=== PATIENT | female | born 1930 | race Caucasian/White ===

== ENCOUNTER 2016-12-03 15:15 | Inpatient (IN) | payer OTHER, MEDICARE ==
[~2016-12-03] VITALS: Ht 154.9 cm; Wt 69.9 kg
--- NOTE | 2016-12-03 15:15 | NUR ---
Patient was BIBA at this time.
[2016-12-03 15:24] VITALS: BP 162/94
[2016-12-03] MEDS ORDERED: ALBUTEROL 0.083% 2.5 MG/3 ML NEBU INH ONE (15:25)
[2016-12-03] MEDS ORDERED: IPRATROPIUM 0.02% 0.5 MG/2.5 ML NEBU INH ONE (15:25)
[2016-12-03] MEDS ORDERED: methylPREDNISolone SS 125 MG/2 ML VIAL IVP ONE (15:25)
[2016-12-03] MEDS ORDERED: MAG SULF 2000 MG/WATER PREMIX 50 ML IV ONE (15:25)
--- NOTE | 2016-12-03 15:42 | NUR ---
RT at [facility] to perform ABG.
[2016-12-03 15:49] LABS: HEMATOCRIT 44.3 % (36-48); HEMOGLOBIN 14.4 g/dL (12.0-16.0); MEAN CORPUSCULAR HEMOGLOBIN 32 pg (27-31); MEAN CORPUSCULAR HGB CONC 32 g/dL (33-37); MEAN CORPUSCULAR VOLUME 98 fL (80-94); PLATELET COUNT (AUTO) 240 K/uL (140-450); RED BLOOD CELL COUNT(AUTO) 4.52 MIL/uL (4.20-5.40); RED CELL DISTRIBUTION WIDTH 13.4 % (11.6-13.7); WHITE BLOOD COUNT (AUTO) 19.9 K/uL (4.8-10.8)
--- NOTE | 2016-12-03 15:50 | NUR ---
PATIENT PRESENTS TO ED WITH C/O DYSPNEA X LAST NIGHT---TACHYPNEA, SHALLOW RESP, WHEEZING TO ALL LOBES NO PEDAL EDEMA NOTED HX--HTN, RX---PREDNISONE DENIES N/V/D; SKIN IS PINK/WARM/DRY; AAOX4 WITH EVEN AND STEADY GAIT; LUNGS EXP WHZ BL; HR EVEN AND REGULAR; PT DENIES ANY CP, OR COUGH AT THIS TIME; PATIENT STATES PAIN OF 0/10 AT THIS TIME; VSS; PATIENT POSITIONED FOR COMFORT; HOB ELEVATED; BEDRAILS UP X2; BED DOWN. ER MD MADE AWARE OF PT STATUS.
[2016-12-03 15:57] LABS: BLOOD GAS BASE EXCESS 2.8 mmol/L (-2.0-2.0); BLOOD GAS HCO3 26.7 mmol/L; BLOOD GAS O2 SAT% 78.8 % (92.0-98.5); BLOOD GAS PCO2 38.6 mmHg (20-50); BLOOD GAS PH 7.458 (7.35-7.45); BLOOD GAS PO2 42.1 mmHg
--- NOTE | 2016-12-03 15:57 | NUR ---
Patient being taken to bed 06 via gurney per EMS.
[2016-12-03 16:01] LABS: ANION GAP 15.1 (8-16); CALCIUM 8.8 mg/dL (8.5-10.1); CARBON DIOXIDE 27.4 mmol/L (21-32); CHLORIDE 102 mmol/L (98-107); GLUCOSE 112 mg/dL (74-106); POTASSIUM 3.5 mmol/L (3.5-5.1); SODIUM SERUM 141 mmol/L (136-145); UREA NITROGEN, BLOOD 15 mg/dL (7-18)
[2016-12-03 16:06] LABS: BAND % (MANUAL) 3 % (0-8); LYMPHOCYTES % (MANUAL) 14 % (20-46); MONOCYTES % (MANUAL) 7 % (5-12); NEUTROPHILS % (MANUAL) 76 (43-65); PLATELET ESTIMATE ADEQUATE
[2016-12-03 16:07] LABS: ALANINE AMINOTRANSFERASE 16 U/L (12-78); ALBUMIN 3.1 g/dL (3.4-5.0); ALKALINE PHOSPHATASE 54 U/L (46-116); AMYLASE 25 U/L (25-115); ASPARTATE AMINOTRANSFERASE 30 U/L (15-37); LIPASE 44 U/L (73-393); TOTAL BILIRUBIN 2.3 mg/dL (0.0-1.0); TOTAL PROTEIN, SERUM 7.5 g/dL (6.4-8.2)
[2016-12-03 16:18] LABS: INR 1.1 (0.8-1.2); PARTIAL THROMBOPLASTIN TIME 26.6 secs (22-35.6); PROTHROMBIN TIME 11.5 secs (10.8-13.4)
[2016-12-03] MEDS ORDERED: ONDANSETRON 4 MG/2 ML VIAL IVP PRN (17:05)
[2016-12-03] MEDS ORDERED: ACETAMINOPHEN 325 MG TAB PO PRN (17:05)
[2016-12-03] MEDS ORDERED: NACL 0.9% 1,000 ML IV SCH (17:05)
[2016-12-03] MEDS ORDERED: MORPHINE SULFATE 2 MG/ML SYR IVP PRN (17:05)
[2016-12-03] MEDS ORDERED: HYDROcodone/APAP 5/325 MG 1 TAB TAB PO PRN (17:05)
--- NOTE | 2016-12-03 17:05 | NUR ---
RN UNAVAILABLE FOR REPORT AT THIS TIME
[2016-12-03] MEDS ORDERED: FUROSEMIDE 40 MG/4 ML VIAL IVP ONE (17:10)
[2016-12-03] MEDS ORDERED: LEVOFLOXACIN 500 MG/D5W PREMIX 100 ML IV ONE (17:30)
--- NOTE | 2016-12-03 17:30 | NUR ---
Patient will be admitted to care of DR NEFF. Admited to TELE. Will go to room 113. Belongings list completed. Report to AICHA HERNANDEZ.
[2016-12-03 17:44] LABS: APPEARANCE,URINE HAZY (CLEAR); BILIRUBIN,URINE 1+ (NEGATIVE); BLOOD, URINE 1+ (NEGATIVE); COLOR,URINE YELLOW (YELLOW); LEUKOCYTE ESTERASE ,URINE NEGATIVE (NEGATIVE); NITRITE, URINE NEGATIVE (NEGATIVE); PROTEIN,URINE 1+ (NEGATIVE); UGLUCOSE NEGATIVE (NEGATIVE)
[2016-12-03 17:52] LABS: BACTERIA,URINE 1-9 (FEW) /HPF (None Seen); ICTOTEST NEGATIVE (NEGATIVE); RBC,URINE 3-10 (FEW) /HPF (0-5); SQUAMOUS EPITHELIAL CELL,UR 0-3 (FEW) /LPF (0-3 (FEW)); WBC,URINE 0-5 (RARE) /HPF (0-5)
[2016-12-03 17:54] LABS: LACTIC ACID 1.3 mmol/L (0.4-2.0)
[2016-12-03 17:59] LABS: FREE T4 (FREE THYROXINE) 0.97 ng/dL (0.76-1.46); MAGNESIUM 1.8 mg/dL (1.8-2.4); PHOSPHORUS 3.3 mg/dL (2.5-4.9); THYROID STIMULATING HORMONE 0.58 uIU/mL (0.34-3.76)
[2016-12-03] MEDS ORDERED: LISI-424 PO (18:00)
[2016-12-03] MEDS ORDERED: GABA100C PO (18:00)
[2016-12-03] MEDS ORDERED: TRA200 PO (18:00)
[2016-12-03] MEDS ORDERED: OSC500 PO (18:00)
[2016-12-03] MEDS ORDERED: LISI5TAB18 PO (18:00)
[2016-12-03] MEDS ORDERED: THYR60TA7 PO (18:00)
[2016-12-03] MEDS ORDERED: FURO-570 PO (18:00)
[2016-12-03] MEDS ORDERED: [UNRECOGNIZED DRUG - CODE] PO (18:00)
[2016-12-03] MEDS ORDERED: RALO60TA PO (18:00)
[2016-12-03] MEDS ORDERED: AMLO5TAB PO (18:00)
[2016-12-03] MEDS ORDERED: PRED10TA5 PO (18:00)
[2016-12-03] MEDS ORDERED: VITA-204 PO (18:00)
--- NOTE | 2016-12-03 18:15 | NUR ---
PATIENT ARRIVED IN THE UNIT FROM ER. PATIENT AWAKE AND ALERT. PATIENT REPORTS OF SOB BUT DENIES PAIN. PATIENT ON VENTURI MASK 10L 50% FIO2. O2 SAT AT 89%. PATIENT ST ON THE MONITOR. SKIN IS INTACT. IV LINE ON THE LEFT HAND INTACT AND ASYMPTOMATIC. CALLAHAN CATHETER IN PLACE. PATIENT PLACED ON TELE MONITORING. BED LOWERED WITH CALL LIGHT WITHIN REACH. WILL CONTINUE TO MONITOR
[2016-12-03 18:20] VITALS: BP 148/78
--- NOTE | 2016-12-03 18:20 | NUR ---
PATIENT HAVING LABORED BREATHING. PATIENT ON VENTI MASK ON 10L O2 50% FIO2 O2 SAT AT 88%. DR IZAGUIRRE PRESENT IN THE ROOM. DR SHAW PUT ORDERS
[2016-12-03] MEDS ORDERED: LEVOFLOXACIN 500 MG/D5W PREMIX 100 ML IV SCH (19:15)
[2016-12-03] MEDS ORDERED: ALBUTEROL SULFATE/IPRATROPIU 3 ML SOL IH PRN (19:15)
--- NOTE | 2016-12-03 19:18 | NUR ---
PATIENT TRANSFERRED TO ICU BED 5
--- NOTE | 2016-12-03 19:20 | NUR ---
RECEIVED PATIENT FROM [facility] ROOM 113 WITH RINA HOLCOMB AND HEIDE RN AT BEDSIDE. PATIENT IS TRANSFERRED TO ICU BED 5 C/C OF DYSPNEA/RESPIRATORY DISTRESS AND DX OF NSTEMI. THERE IS A#20 IN THE LEFT HAND WITH PATIENT RECEIVING NORMAL SALINE 20 ML/HR. PATIENT IS RECEIVING OXYGEN THERAPY AT 10 LPM VIA VENTURI MASK AT 50%. THERE IS A CALLAHAN CATHETER IN PLACE DRAINING TO GRAVITY WITH MODERATE AMOUNT OF CLEAR YELLOW URINE NOTED. EXPLAINED PLAN OF CARE TONIGHT TO PATIENT TO INCLUDE MEDICATION ADMINISTRATION, VITALS, AND MONITORING. PATIENT VERBALIZED UNDERSTANDING. HOB AT 30 DEGREES WITH BED IN LOW POSITION. SAFETY PRECAUTIONS IN PLACE. WILL CONTINUE TO MONITOR PATIENT.
--- NOTE | 2016-12-03 19:39 | NUR ---
DR. DEL CID AT BEDSIDE TO SEE PATIENT. MD PROVIDED UPDATED PLAN OF CARE TO PATIENT AND PATIENT'S AT BEDSIDE. NO SIGNS OF DISTRESS NOTED. CONTINUE TO MONITOR PATIENT.
[2016-12-03 20:00] VITALS: BP 132/72
[2016-12-03] MEDS: SIMVASTATIN 10 MG TAB PO SCH (21:14)
[2016-12-03] MEDS: METOPROLOL 25 MG TAB PO SCH (21:15)
[2016-12-03] MEDS: GABAPENTIN 100 MG CAP PO SCH (21:15)
[2016-12-03] MEDS: methylPREDNISolone SS 125 MG/2 ML VIAL IVP SCH (21:20)
--- NOTE | 2016-12-03 21:28 | NUR ---
PATIENT TOLERATED DUE MEDICATIONS. NO SIGNS OF RESPIRATORY DISTRESS OR SOB NOTED. WILL CONTINUE TO MONITOR PATIENT.
--- NOTE | 2016-12-03 21:28 | NUR ---
MUSHTAQ RT AND AYLIN RT AT BEDSIDE FOR SCHEDULED EKG AND BREATHING TREATMENT.
[2016-12-03] MEDS: BUDESONIDE 0.5 MG/2 ML NEBU INH SCH (21:30)
[2016-12-03 22:00] VITALS: BP 124/69
--- NOTE | 2016-12-03 22:20 | NUR ---
RAD TECHNICIANS AT BEDSIDE TO TAKE PATIENT FOR SCHEDULED PROCEDURE.
--- NOTE | 2016-12-03 22:25 | NUR ---
PATIENT WHEELED OFF UNIT VIA GURNEY WITH CHARGE NURSE JAVIER HOLCOMB AND RADIOLOGY TECHNICIANS TO RADIOLOGY FOR CT CHEST WITHOUT CONTRAST PROCEDURE PER DR. DEL CID'S ORDERS. NO SIGNS OF DISTRESS NOTED.
--- NOTE | 2016-12-03 22:45 | NUR ---
PATIENT TRANSPORTED BACK ONTO UNIT FROM RADIOLOGY. NO SIGNS OF DISTRESS OR SOB NOTED. CONTINUE TO MONITOR.
--- NOTE | 2016-12-03 22:54 | NUR ---
REPOSITIONED PATIENT FOR COMFORT. NO S/S OF DISTRESS NOTED. HOB AT 30 DEGREES WITH BED IN LOW POSITION. CONTINUE TO MONITOR PATIENT.
--- NOTE | 2016-12-03 23:40 | NUR ---
PACKAGE CENTER SUPERVISOR AT BEDSIDE FOR SCHEDULED LAB DRAW.
[2016-12-04] VITALS (13 sets, daily range): BP systolic 113–149; BP diastolic 62–77
--- NOTE | 2016-12-04 00:15 | NUR ---
PATIENT RESTING COMFORTABLY IN BED. NO S/S OF RESPIRATORY DISTRESS OR SOB NOTED. HOB AT 30 DEGREES WITH BED IN LOW POSITION. WILL CONTINUE TO MONITOR PATIENT.
--- NOTE | 2016-12-04 02:00 | NUR ---
PATIENT IS RESTING COMFORTABLY IN BED. NO SIGNS OF SOB OR ACUTE RESPIRATORY DISTRESS NOTED. VITALS ARE WNL. WILL CONTINUE TO MONITOR.
--- NOTE | 2016-12-04 04:05 | NUR ---
PATIENT RESTING COMFORTABLY IN BED WITH NO SIGNS OF RESPIRATORY DISTRESS OR SHORTNESS OF BREATH NOTED. HOB AT 30 DEGREES WITH BED IN LOW POSITION. WILL CONTINUE TO MONITOR PATIENT.
--- NOTE | 2016-12-04 05:15 | NUR ---
COLLATING MACHINE OPERATOR AT BEDSIDE FOR SCHEDULED LAB DRAWS. NO SIGNS OF DISTRESS NOTED.
--- NOTE | 2016-12-04 05:20 | NUR ---
SCHEDULED 629 ARMOUR THYROID 60 MG PO IS NOT AVAILABLE IN ICU UNIT. NOTIFIED SHAWN BROWNE RN, WHO STATED HE WILL CHECK OTHER UNITS IF IT IS AVAILABLE. CHARGE NURSE JAVIER HOLCOMB MADE AWARE.
[2016-12-04] MEDS: methylPREDNISolone SS 125 MG/2 ML VIAL IVP SCH ×3 (05:22→21:11)
--- NOTE | 2016-12-04 05:25 | NUR ---
SHAWN BROWNE RN CALLED AND NOTIFIED CHARGE NURSE JAVIER THAT ARMOUR THYROID 60MG PO IS NOT AVAILABLE IN OTHER UNITS. UNABLE TO ADMINISTER SCHEDULED 0630 DOSAGE. WILL ENDORSE TO DAY SHIFT TO FOLLOW UP WITH PHARMACY.
[2016-12-04] MEDS: THYROID 60 MG TAB PO SCH (05:31)
[2016-12-04 05:49] LABS: HEMATOCRIT 44.1 % (36-48); HEMOGLOBIN 14.6 g/dL (12.0-16.0); MEAN CORPUSCULAR HEMOGLOBIN 33 pg (27-31); MEAN CORPUSCULAR HGB CONC 33 g/dL (33-37); MEAN CORPUSCULAR VOLUME 98 fL (80-94); PLATELET COUNT (AUTO) 231 K/uL (140-450); RED BLOOD CELL COUNT(AUTO) 4.48 MIL/uL (4.20-5.40); RED CELL DISTRIBUTION WIDTH 13.2 % (11.6-13.7); WHITE BLOOD COUNT (AUTO) 23.4 K/uL (4.8-10.8)
[2016-12-04 05:55] LABS: ANION GAP 13.1 (8-16); CALCIUM 8.5 mg/dL (8.5-10.1); CARBON DIOXIDE 30.5 mmol/L (21-32); CHLORIDE 102 mmol/L (98-107); CREATININE 1.2 mg/dL (0.6-1.3); GLUCOSE 147 mg/dL (74-106); POTASSIUM 3.6 mmol/L (3.5-5.1); SODIUM SERUM 142 mmol/L (136-145); UREA NITROGEN, BLOOD 25 mg/dL (7-18)
[2016-12-04 06:02] LABS: CHOL/HDL RATIO 2.3 (1-4.5); MAGNESIUM 2.7 mg/dL (1.8-2.4); PHOSPHORUS 4.8 mg/dL (2.5-4.9)
--- NOTE | 2016-12-04 06:10 | NUR ---
PATIENT RESTING COMFORTABLY IN BED. NO SIGNS OF SOB OR DISTRESS NOTED. CONTINUE TO MONITOR PATIENT.
[2016-12-04] MEDS: BUDESONIDE 0.5 MG/2 ML NEBU INH SCH ×2 (06:53→19:16)
[2016-12-04 06:56] LABS: BAND % (MANUAL) 2 % (0-8); LYMPHOCYTES % (MANUAL) 4 % (20-46); MONOCYTES % (MANUAL) 1 % (5-12); NEUTROPHILS % (MANUAL) 93 (43-65)
--- NOTE | 2016-12-04 07:33 | NUR ---
PATIENT RESTING IN BED WITH NO SIGNS OF RESPIRATORY DISTRESS NOTED. ALL NEEDS ATTENDED TO DURING SHIFT. ENDORSED CONTINUITY OF CARE TO JASON HOLCOMB.
--- NOTE | 2016-12-04 07:45 | NUR ---
RECEIVED PATIENT AWAKE,ALERT AND ORIENTED X 4. CALM AND COOPERATIVE. STATES THAT SHE FEELS LITTLE BETTER TODAY. REEL FED PRINTER SHOWS SINUS RHYTHM. NO ECTOPY. ON O2 VENTURI MASK 50% . O2 SAT 91%. MILD SOB AT REST WITH INCREASE SOB ON EXERTION. LUNG SOUNDS CRACKLES IN BASES. ABDOMEN IS SOFT,ROUND,HYPOACTIVE BOWEL TONE AND NONTENDER. PT DENIES NAUSEA. PT STATES THAT SHE DOES NOT FEEL HUNGRY AT ALL. PT IS NPO. CALLAHAN CATHETER IN PLACE,DRAINING WITH SMALL AMT OF CLEAR YELLOW URINE. PT MOVES ALL EXTREMITIES WITH SOME WEAKNESS. SKIN IS WARM,DRY AND INTACT. NO EDEMA. HAS SALINE LOCK FOR IV. PATIENT DENIES PAIN. REPOSITIONED PATIENT AND OFF LOAD PRESSURE AREA. CONTINUE TO OBSERVE PATIENT.
[2016-12-04] MEDS ORDERED: amLODIPine 5 MG TAB PO SCH (09:00)
[2016-12-04] MEDS: ECOTRIN 81 MG TABEC PO SCH (09:08)
[2016-12-04] MEDS: METOPROLOL 25 MG TAB PO SCH (09:09)
[2016-12-04] MEDS: LISINOPRIL 5 MG TAB PO SCH (09:10)
[2016-12-04] MEDS: RALOXIFENE 60 MG TAB PO SCH (09:15)
--- NOTE | 2016-12-04 10:00 | NUR ---
VISITED PATIENT,UPDATED IN PATIENT'S CONDITION. PATIENT DENIES PAIN. REPOSITIONED PATIENT,OFF LOAD PRESSURE AREA.
--- NOTE | 2016-12-04 12:15 | NUR ---
CARDIOLOGY SEEN THE PATIENT AND SPOKE TO PATIENT'S DAUGHTER AT BEDSIDE REGARDING PT'S CONDITION AND PLAN OF CARE. ORDER RECEIVED FOR CARDIAC DIET.
--- NOTE | 2016-12-04 13:00 | NUR ---
ON O2 VENTURI MASK 50%. O2 SAT 91%. LUNCH IS SERVED. PLACED PATIENT ON O2 NASAL CANNULA @ 5 L/MIN FOR PATIENT TO EAT HER LUNCH. DAUGHTER IS AT BEDSIDE.
[2016-12-04] MEDS ORDERED: FUROSEMIDE 40 MG/4 ML VIAL IVP SCH (13:14)
--- NOTE | 2016-12-04 13:17 | NUR ---
PATIENT IS STILL EATING. ON NASAL CANNULAR AT 5 L/MIN WHILE EATING. O2 SAT 88-89%. PATIENT STATES THAT SHE FEELS OKAY. CONTINUE TO MONITOR PATIENT.
--- NOTE | 2016-12-04 13:45 | NUR ---
PATIENT ATE LUNCH 25%. HAS A POOR APPETITE. CHANGED O2 NASAL CANNULA TO VENTURI MASK 50% BEFORE.
[2016-12-04] MEDS: ALBUTEROL SULFATE/IPRATROPIU 3 ML SOL IH SCH ×3 (14:52→23:01)
[2016-12-04 15:48] LABS: BLOOD GAS BASE EXCESS 4.7 mmol/L (-2.0-2.0); BLOOD GAS HCO3 30.5 mmol/L; BLOOD GAS O2 SAT% 91.3 % (92.0-98.5); BLOOD GAS PCO2 49.2 mmHg (20-50)
--- NOTE | 2016-12-04 15:56 | NUR ---
CONDITION IS STABLE. COMPLETE BATH GIVEN WITH CATHETER CARE DONE. REPOSITIONED AND OFF LOAD PRESSURE AREA.
[2016-12-04] MEDS ORDERED: LEVOFLOXACIN 750 MG/D5W PREMIX 150 ML IV SCH (16:00)
--- NOTE | 2016-12-04 17:15 | NUR ---
ON O2 NASAL CANNULA 5 L/MIN FOR EATING DINNER. O2 SAT 88%-89%,BUT PATIENT HAS NO SIGN OF RESPIRATORY DISTRESS. PATIENT ATE PUDDING AND APPLE SAUCE ONLY.
[2016-12-04] MEDS ORDERED: PIPER/TAZO 2.25GM/D5W PREMIX 50 ML IV SCH (18:00)
--- NOTE | 2016-12-04 19:00 | NUR ---
HAS NO SIGN OF RESP DISTRESS. CONT ON SAME O2 VENTURI MASK 50%. PULMONARY PRESENT AT BEDSIDE. REPORT GIVEN TO THERESA HOLCOMB FOR CONTINUITY OF CARE.
--- NOTE | 2016-12-04 19:05 | NUR ---
RECEIVED REPORT FROM JASON HOLCOMB. PATIENT IS ALERT, AWAKE, AND RESTING IN BED. DR. DEL CID AT BEDSIDE TO ASSESS PATIENT. NO SIGNS OF DISTRESS OR SOB NOTED. VITALS ARE STABLE. NO REPORTS OF PAIN OR DISCOMFORT AT THIS TIME. BREATH SOUNDS ARE DIMINISHED AND BOWEL SOUNDS ARE ACTIVE. THERE IS A #20 IN THE LEFT HAND SALINE LOCK. SITE IS DRY, INTACT, AND PATENT. THERE IS A CALLAHAN CATHETER IN PLACE DRAINING TO GRAVITY WITH MODERATE AMOUNT OF MODERATE AMOUNT OF CLEAR YELLOW URINE NOTED. EXPLAINED PLAN OF CARE TO INCLUDE VITAL SIGNS, MONITORING, AND SCHEDULED MEDICATION ADMINISTRATION. PATIENT VERBALIZED UNDERSTANDING. DR. DEL CID'S NEW ORDER IS TO TITRATE FIO2 DOWN FROM 50% TO MAINTAIN OXYGEN SATURATION AT 88% AND ABOVE. WILL FOLLOW UP WITH NEW ORDERS AND COORDINATE PLAN OF CARE WITH RESPIRATORY THERAPIST. HOB AT 30 DEGREES WITH BED IN LOW POSITION. CONTINUE TO MONITOR PATIENT.
--- NOTE | 2016-12-04 19:23 | NUR ---
YONNY RT AT BEDSIDE FOR SCHEDULED BREATHING TX. NOTIFIED YONNY RT OF DR. DEL CID'S ORDERS OF TITRATING DOWN FIO2 TO MAINTAIN OXYGEN SATURATION AT 88% AND ABOVE.
[2016-12-04] MEDS: CLINDAMYCIN 600 MG in DEXTROSE 5% 50 ML IV SCH (21:10)
[2016-12-04] MEDS: GABAPENTIN 100 MG CAP PO SCH (21:10)
[2016-12-04] MEDS: CARVEDILOL 3.125 MG TAB PO SCH (21:11)
[2016-12-04] MEDS: SIMVASTATIN 10 MG TAB PO SCH (21:11)
--- NOTE | 2016-12-04 21:25 | NUR ---
TOLERATED DUE MEDICATIONS. NO SIGNS OF SOB OR DISTRESS NOTED. PATIENT'S NEEDS MET AT THIS TIME. HOB AT 30 DEGREES WITH BED IN LOW POSITION. CONTINUE TO MONITOR PATIENT.
[2016-12-05] VITALS (7 sets, daily range): BP systolic 122–144; BP diastolic 58–76
--- NOTE | 2016-12-05 | NUR ---
PATIENT RESTING COMFORTABLY IN BED WITH NO SIGNS OF ACUTE DISTRESS OR SOB NOTED. PATIENT'S NEEDS MET AT THIS TIME. VITALS ARE STABLE. HOB AT 30 DEGREES WITH BED IN LOW POSITION. WILL CONTINUE TO MONITOR PATIENT.
--- NOTE | 2016-12-05 02:05 | NUR ---
ROUNDED ON PATIENT. PATIENT RESTING COMFORTABLY IN BED WITH NO SIGNS OF ACUTE RESPIRATORY DISTRESS NOTED. WILL CONTINUE TO MONITOR PATIENT.
[2016-12-05] MEDS: ALBUTEROL SULFATE/IPRATROPIU 3 ML SOL IH SCH ×6 (03:29→23:42)
--- NOTE | 2016-12-05 04:44 | NUR ---
REAMING PRESS OPERATOR AT BEDSIDE FOR SCHEDULED LAB DRAWS.
--- NOTE | 2016-12-05 04:48 | NUR ---
OFFERED MORNING CARE TO PATIENT AFTER LAB DRAWS. PATIENT STATED SHE WOULD RATHER SLEEP AND REFUSED MORNING CARE AT THIS TIME. WILL CONTINUE TO MONITOR PATIENT.
[2016-12-05] MEDS: CLINDAMYCIN 600 MG in DEXTROSE 5% 50 ML IV SCH (04:49)
[2016-12-05] MEDS: methylPREDNISolone SS 125 MG/2 ML VIAL IVP SCH (04:50)
[2016-12-05 04:59] LABS: HEMOGLOBIN 13.7 g/dL (12.0-16.0); MEAN CORPUSCULAR HEMOGLOBIN 32 pg (27-31); MEAN CORPUSCULAR HGB CONC 33 g/dL (33-37); MEAN CORPUSCULAR VOLUME 99 fL (80-94); PLATELET COUNT (AUTO) 252 K/uL (140-450); RED BLOOD CELL COUNT(AUTO) 4.27 MIL/uL (4.20-5.40); RED CELL DISTRIBUTION WIDTH 13.3 % (11.6-13.7)
[2016-12-05] MEDS: THYROID 60 MG TAB PO SCH (05:50)
--- NOTE | 2016-12-05 06:05 | NUR ---
PATIENT AWAKE AND RESTING IN BED. NO SIGNS OF RESPIRATORY DISTRESS NOTED. PATIENT'S NEEDS MET AT THIS TIME. CONTINUE TO MONITOR PATIENT.
[2016-12-05 06:20] LABS: ANION GAP 9.9 (8-16); CALCIUM 8.3 mg/dL (8.5-10.1); CARBON DIOXIDE 33.4 mmol/L (21-32); CHLORIDE 105 mmol/L (98-107); CREATININE 1.2 mg/dL (0.6-1.3); GLUCOSE 160 mg/dL (74-106); POTASSIUM 3.3 mmol/L (3.5-5.1); SODIUM SERUM 145 mmol/L (136-145); UREA NITROGEN, BLOOD 42 mg/dL (7-18)
[2016-12-05 06:25] LABS: ALBUMIN 2.6 g/dL (3.4-5.0); MAGNESIUM 2.5 mg/dL (1.8-2.4); PHOSPHORUS 4.4 mg/dL (2.5-4.9)
--- NOTE | 2016-12-05 06:50 | NUR ---
RESPIRATORY THERAPIST AT BEDSIDE ADMINISTERING SCHEDULED BREATHING TREATMENT. NO SIGNS OF SOB OR DISTRESS NOTED. CONTINUE TO MONITOR.
[2016-12-05] MEDS: BUDESONIDE 0.5 MG/2 ML NEBU INH SCH ×2 (06:52→20:09)
--- NOTE | 2016-12-05 07:15 | NUR ---
PATIENT IN STABLE CONDITION. ALL NEEDS ATTENDED TO DURING SHIFT. ENDORSED CONTINUITY OF CARE TO MERLY HOLCOMB AND PABLITO HOLCOMB.
--- NOTE | 2016-12-05 07:30 | NUR ---
RECEIVED REPORT FROM AICHA CARDENAS. PT IS ALERT AND ORIENTED X4. VERBALLY RESPONSIVE. NO C/O PAIN OR DISCOMFORT. BILATERAL PERRLA NOTED IN EYES. PT CHANGED TO NC AT 3 L FOR BREAKFAST. TOLERATED WELL. SATURATING BETWEEN 88%-91%. NOTIFY RT TO ASSESS IF ABLE TO STAY ON NC AFTER BREAKFAST. NOTIFIED. ST ON MONITOR. SKIN INTACT. LEFT HAND 20 GAUGE NOTED. INTACT AND PATENT. CALLAHAN CATHETER NOTED. DRAINING CLEAR YELLOW URINE. ABLE TO MOVE ALL EXTREMITIES. WEAKNESS NOTED. SAFETY PRECAUTION MAINTAINED. BED AT LOWEST SETTING. CALL LIGHT WITHIN REACH. WILL CONTINUE TO MONITOR.
[2016-12-05 08:03] LABS: WHITE BLOOD COUNT (AUTO) 30.6 K/uL (4.8-10.8)
[2016-12-05 08:04] LABS: BAND % (MANUAL) 2 % (0-8); LYMPHOCYTES % (MANUAL) 5 % (20-46); MONOCYTES % (MANUAL) 3 % (5-12); NEUTROPHILS % (MANUAL) 90 (43-65)
[2016-12-05 08:30] LABS: BLOOD GAS PCO2 48.9 mmHg (20-50); BLOOD GAS PH 7.378 (7.35-7.45)
[2016-12-05 08:31] LABS: BLOOD GAS BASE EXCESS 2.2 mmol/L (-2.0-2.0); BLOOD GAS HCO3 28.1 mmol/L; BLOOD GAS O2 SAT% 91.9 % (92.0-98.5)
--- NOTE | 2016-12-05 08:39 | NUR ---
DEANGELO REPORTED TO DR NEFF
--- NOTE | 2016-12-05 08:40 | NUR ---
DR. NEFF'S GROUP IN TO SEE PT. WILL FOLLOW UP ON ORDERS.
[2016-12-05] MEDS: FUROSEMIDE 40 MG/4 ML VIAL IVP SCH (09:22)
[2016-12-05] MEDS: ECOTRIN 81 MG TABEC PO SCH (09:22)
[2016-12-05] MEDS: LISINOPRIL 5 MG TAB PO SCH (09:23)
[2016-12-05] MEDS: MULTIVITAMIN/MINERALS 1 TAB PO SCH (09:23)
[2016-12-05] MEDS: CARVEDILOL 3.125 MG TAB PO SCH ×2 (09:23→21:04)
[2016-12-05] MEDS: CALCIUM CARB/VIT-D 500 MG/200 IU 1 TAB PO SCH (09:23)
[2016-12-05] MEDS: RALOXIFENE 60 MG TAB PO SCH (09:23)
--- NOTE | 2016-12-05 09:25 | NUR ---
MEDICATION GIVEN ORDERED. TOLERATED WELL. WILL CONTINUE TO MONITOR. BP 121/58, P 100.
--- NOTE | 2016-12-05 10:00 | NUR ---
DR. JEFFREY AT BEDSIDE TO SEE PT. WILL F/U WITH NEW ORDERS.
--- NOTE | 2016-12-05 10:14 | NUR ---
PATIENT HAS BEEN SCREENED AND CATEGORIZED HIGH NUTRITION RISK. PATIENT WILL BE SEEN WITHIN 1-2 DAYS OF ADMISSION. 12/04/16-12/05/[address]
[2016-12-05] MEDS ORDERED: POTASSIUM CHLORIDE 10 MEQ TABER PO SCH (10:30)
[2016-12-05] MEDS ORDERED: PROBIOTIC SCREEN 1 EA MISC MC PRN (10:55)
--- NOTE | 2016-12-05 11:27 | NUR ---
PT TOLERATED MEDS WELL
--- NOTE | 2016-12-05 12:05 | NUR ---
PT'S ADOPTED DAUGHTER, GARRY, PRESENT AT BEDSIDE.
--- NOTE | 2016-12-05 13:07 | NUR ---
DR. DEL CID IN TO SEE PT. WILL FOLLOW UP ON ORDERS.
--- NOTE | 2016-12-05 13:30 | NUR ---
PER PT, PT NOTED PAIN UPON FLUSHING OF LEFT HAND IV. ASSESSMENT SHOWS IV IS STILL PATENT AND INTACT. NEW IV STARTED PER PT'S REQUEST. STARTED GAUGE 20 ON RIGHT FOREARM. TOLERATED WELL. BLOOD RETURN NOTED. IV IS INTACT AND PATENT. WILL CONTINUE TO MONITOR.
--- NOTE | 2016-12-05 13:55 | NUR ---
PT'S HAIR SHAMPOOED AND COMBED FOR COMFORT. PT'S DAUGHTER PRESENT AT BEDSIDE.
--- NOTE | 2016-12-05 14:06 | NUR ---
12/05/16 RD INITIAL ASSESSMENT COMPLETED PLEASE REFER TO NUTRITION ASSESSMENT UNDER CARE ACTIVITY FOR ESTIMATED NUTRITIONAL NEEDS. 1. CONTINUE CARDIAC DIET 2. RD TO FOLLOW-UP 2-3 DAYS; HIGH RISK [address]
[2016-12-05] MEDS: MEROPENEM 500 MG in NACL 0.9% 50 ML IV SCH (15:03)
--- NOTE | 2016-12-05 15:26 | NUR ---
PT UNABLE TO PRODUCE SPUTUM AT THIS TIME
[2016-12-05] MEDS ORDERED: LEVOFLOXACIN 750 MG/D5W PREMIX 150 ML IV SCH (16:00)
--- NOTE | 2016-12-05 16:38 | NUR ---
PT IS RESTING COMFORTABLY IN BED. SLEEPING.
--- NOTE | 2016-12-05 17:07 | NUR ---
DR. HERRERA AT BEDSIDE TO SEE PT. WILL F/U WITH NEW ORDERS.
--- NOTE | 2016-12-05 17:26 | NUR ---
REPORT GIVEN TO AICHA ONEILL. PT IS STABLE. WILL TRANSFER PT.
--- NOTE | 2016-12-05 18:30 | NUR ---
PT TRANSFERRED TO TELE. ALL BELONGINGS AND MEDICATION TRANSFERRED. PT IS STABLE.
--- NOTE | 2016-12-05 18:31 | NUR ---
ASSUMED CARE FROM [facility] LABORATORY DIRECTOR. PT AAO, EATING DINNER. NO SOB NOTED. NO COMPLAINTS MADE.
--- NOTE | 2016-12-05 19:15 | NUR ---
PT AWAKE. NO SOB NOTED. NO COMPLAINTS MADE. ENDORSED TO NEXT SHIFT NURSE FOR CONTINUITY OF CARE.
--- NOTE | 2016-12-05 19:20 | NUR ---
RECEIVED REPORTS FROM DAY RN, PATIENT RESTING IN BED, AWAKE ALERT ORIENTED X4. NO S/S OF ACUTE DISTRESS NOTED, RESPIRATION EVEN AND UNLABORED, PATIENT ON 02 NC 3L. IV PATIENT AND INTACT, FLUSHED WITH NORMAL SALINE. CALLAHAN CATHETER IN PLACED, DRAINING CLEAR YELLOW URINE BY GRAVITY. CALL LIGHT WITHIN REACH, SAFETY MEASURE ENSURED, WILL CONTINUE TO MONITOR.
[2016-12-05] MEDS: SIMVASTATIN 10 MG TAB PO SCH (21:02)
[2016-12-05] MEDS: methylPREDNISolone SS 40 MG/ML VIAL IVP SCH (21:02)
[2016-12-05] MEDS: GABAPENTIN 100 MG CAP PO SCH (21:02)
--- NOTE | 2016-12-05 21:10 | NUR ---
PM MEDS GIVEN, PATIENT TOLERATED WELL. CALL LIGHT WITHIN REACH, WILL CONTINUE TO MONITOR
[2016-12-06] VITALS: BP 144/76
[2016-12-06] MEDS: MEROPENEM 500 MG in NACL 0.9% 50 ML IV SCH ×2 (01:42→13:08)
--- NOTE | 2016-12-06 02:00 | NUR ---
PATIENT IS SLEEPING IN BED, EASY TO AROUSE, AM MERREM STARTED. NO S/S OF ACUTE DISTRESS NOTED, RESPIRATION EVEN AND UNLABORED, SAFETY MEASURE ENSURED, WILL CONTINUE TO MONITOR
[2016-12-06] MEDS: ALBUTEROL SULFATE/IPRATROPIU 3 ML SOL IH SCH ×6 (03:14→23:30)
[2016-12-06 04:00] VITALS: BP 132/66
--- NOTE | 2016-12-06 04:10 | NUR ---
PATIENT ASLEEP IN BED, EASY TO AROUSE, VITAL SIGNS TAKEN, STABLE. CALL LIGHT WITHIN REACH, SAFETY MEASURE ENSURED, WILL CONTINUE TO MONITOR
[2016-12-06] MEDS: THYROID 60 MG TAB PO SCH (06:01)
--- NOTE | 2016-12-06 06:04 | NUR ---
AM MEDICATION GIVEN, PATIENT TOLERATED WELL. NO S/S OF ACUTE DISTRESS NOTED, CALL LIGHT WITHIN REACH, SAFETY MEASURE ENSURED, WILL CONTINUE TO MONITOR.
[2016-12-06] MEDS: BUDESONIDE 0.5 MG/2 ML NEBU INH SCH ×2 (07:20→19:33)
--- NOTE | 2016-12-06 07:30 | NUR ---
RECEIVED REPORT FROM NIGHT NURSE. PT IS AAOX4, ON O2 4L VIA NC, SKIN INTACT , IV TO RIGHT FA 20 SALINE LOCK, CALLAHAN IN PLACE. INITIAL ASSESSMENT COMPLETED, REVIEW PLAN OF CARE WITH PT PT VERBALIZED UNDERSTANDING. ALL SAFETY PRECAUTIONS MET. CALL LIGHT WITHIN REACH. WILL CONTINUE TO MONITOR.
--- NOTE | 2016-12-06 07:30 | NUR ---
ENDORSED PLAN OF CARE TO DAY RN. PATIENT IS IN STABLE CONDITION.
[2016-12-06 07:52] VITALS: BP 140/78
[2016-12-06] MEDS: ECOTRIN 81 MG TABEC PO SCH (08:43)
[2016-12-06] MEDS: LISINOPRIL 5 MG TAB PO SCH (08:44)
[2016-12-06] MEDS: MULTIVITAMIN/MINERALS 1 TAB PO SCH (08:44)
[2016-12-06] MEDS: CARVEDILOL 3.125 MG TAB PO SCH ×2 (08:44→20:51)
[2016-12-06] MEDS: RALOXIFENE 60 MG TAB PO SCH (08:44)
[2016-12-06] MEDS: methylPREDNISolone SS 40 MG/ML VIAL IVP SCH ×2 (08:44→20:51)
[2016-12-06] MEDS: FUROSEMIDE 40 MG/4 ML VIAL IVP SCH (08:45)
[2016-12-06] MEDS: CALCIUM CARB/VIT-D 500 MG/200 IU 1 TAB PO SCH (08:47)
--- NOTE | 2016-12-06 08:57 | NUR ---
DUE MEDICATIONS GIVEN, PT TOLERATED WELL. ALL NEEDS MET. WILL CONTINUE TO MONITOR.
[2016-12-06 10:24] LABS: HEMATOCRIT 41.1 % (36-48); HEMOGLOBIN 13.3 g/dL (12.0-16.0); MEAN CORPUSCULAR HEMOGLOBIN 32 pg (27-31); MEAN CORPUSCULAR HGB CONC 32 g/dL (33-37); MEAN CORPUSCULAR VOLUME 99 fL (80-94); PLATELET COUNT (AUTO) 267 K/uL (140-450); RED BLOOD CELL COUNT(AUTO) 4.15 MIL/uL (4.20-5.40); WHITE BLOOD COUNT (AUTO) 24.7 K/uL (4.8-10.8)
[2016-12-06 10:42] LABS: BASOPHILS # (AUTO) 0.2 K/uL (0.00-0.22)
[2016-12-06 10:44] LABS: BAND % (MANUAL) 4 % (0-8); LYMPHOCYTES % (MANUAL) 3 % (20-46); MONOCYTES % (MANUAL) 2 % (5-12); NEUTROPHILS % (MANUAL) 91 (43-65)
--- NOTE | 2016-12-06 11:30 | NUR ---
CHECKED IN ON PT. NO S/S OF RESPIRATORY DISTRESS NOTED. ALL NEEDS MET. CALL LIGHT WITHIN REACH. WILL CONTINUE TO MONITOR.
[2016-12-06 11:55] LABS: ANION GAP 11.2 (8-16); CALCIUM 8.4 mg/dL (8.5-10.1); CARBON DIOXIDE 34.5 mmol/L (21-32); CHLORIDE 105 mmol/L (98-107); CREATININE 1.2 mg/dL (0.6-1.3); GLUCOSE 193 mg/dL (74-106); POTASSIUM 3.7 mmol/L (3.5-5.1); SODIUM SERUM 147 mmol/L (136-145); UREA NITROGEN, BLOOD 57 mg/dL (7-18)
[2016-12-06 12:00] VITALS: BP 123/53
--- NOTE | 2016-12-06 13:11 | NUR ---
DUE MEDICATIONS GIVEN. PT CURRENTLY RESTING IN BED, NO S/S OF RESPIRATORY DISTRESS NOTED OR SOB. ALL NEEDS MET. WILL CONTINUE TO MONITOR.
--- NOTE | 2016-12-06 15:25 | NUR ---
PT ON ROOM AIR PULSE OF OT 78%, PT PT BACK ON O2 3L VIA NC PT O2 INCREASE TO 92%, RT IN ROOM TO GIVE BREATHING TREATMENT.
[2016-12-06 16:00] VITALS: BP 145/73
--- NOTE | 2016-12-06 17:13 | NUR ---
CHECKED IN ON PT, PT COMFORTABLY RESTING IN BED. ALL NEEDS MET, CALL LIGHT WITHIN REACH. WILL CONTINUE TO MONITOR.
--- NOTE | 2016-12-06 19:23 | NUR ---
ENDORSED PLAN OF CARE TO NIGHT NURSE. PT IN STABLE CONDITION.
--- NOTE | 2016-12-06 19:24 | NUR ---
RECEIVED REPORT FROM DANIE HOLCOMB FOR CONTINUITY OF CARE. PATIENT IS A&OX4, DISCUSSED PLAN OF CARE WITH PATIENT, VERBALIZED UNDERSTANDING. SHIFT ASSESSMENT DONE, VS STABLE AT THIS TIME. NO S/S OF RESPIRATORY DISTRESS NOTED ON 3L NC. PATIENT DENIES PAIN AT THIS TIME. IV TO RT WRIST PATENT AND FLUSHED. CALLAHAN CATHETER DRAINING TO GRAVITY. SAFETY/ FALL PRECAUTIONS ENFORCED. CALL LIGHT WITHIN REACH. WILL CONTINUE TO MONITOR.
[2016-12-06 20:00] VITALS: BP 118/71
[2016-12-06] MEDS: SIMVASTATIN 10 MG TAB PO SCH (20:51)
[2016-12-06] MEDS: GABAPENTIN 100 MG CAP PO SCH (20:51)
--- NOTE | 2016-12-06 20:51 | NUR ---
DUE MEDICATIONS ADMINISTERED, TOLERATED WELL AND VERBALIZED UNDERSTANDING OF USE. REPOSITIONED PATIENT FOR COMFORT. SAFETY MEASURES ENFORCED. CALL LIGHT WITHIN REACH.
[2016-12-07] VITALS: BP 137/72
--- NOTE | 2016-12-07 | NUR ---
VITAL SIGNS STABLE. PATIENT NOW SLEEPING AT THIS TIME. CALL LIGHT WITHIN REACH, SAFETY MEASURES ENFORCED.
[2016-12-07] MEDS: MEROPENEM 500 MG in NACL 0.9% 50 ML IV SCH ×2 (02:25→14:27)
--- NOTE | 2016-12-07 02:25 | NUR ---
DUE ANTIBIOTICS ADMINISTERED. PATIENT RESTING IN BED NO S/S OF DISTRESS OR DISCOMFORT NOTED. CALL LIGHT WITHIN REACH.
[2016-12-07] MEDS: ALBUTEROL SULFATE/IPRATROPIU 3 ML SOL IH SCH ×6 (03:50→23:00)
[2016-12-07 04:00] VITALS: BP 148/76
--- NOTE | 2016-12-07 04:00 | NUR ---
VITAL SIGNS STABLE. PATIENT RESTING IN BED ALL NEEDS MET AT THIS TIME. CALL LIGHT WITHIN REACH.
[2016-12-07] MEDS: THYROID 60 MG TAB PO SCH (05:53)
--- NOTE | 2016-12-07 05:53 | NUR ---
DUE MEDICATIONS ADMINISTERED, TOLERATED WELL. PATIENT RESTING IN BED NO S/S OF DISTRESS OR DISCOMFORT NOTED. CALL LIGHT WITHIN REACH.
[2016-12-07 06:22] LABS: HEMATOCRIT 40.3 % (36-48); MEAN CORPUSCULAR HEMOGLOBIN 32 pg (27-31); MEAN CORPUSCULAR HGB CONC 32 g/dL (33-37); MEAN CORPUSCULAR VOLUME 99 fL (80-94); PLATELET COUNT (AUTO) 234 K/uL (140-450); RED BLOOD CELL COUNT(AUTO) 4.05 MIL/uL (4.20-5.40)
[2016-12-07 06:44] LABS: ANION GAP 9.1 (8-16); CALCIUM 8.2 mg/dL (8.5-10.1); CARBON DIOXIDE 36.3 mmol/L (21-32); CHLORIDE 106 mmol/L (98-107); CREATININE 0.9 mg/dL (0.6-1.3); GLUCOSE 152 mg/dL (74-106); POTASSIUM 4.4 mmol/L (3.5-5.1); SODIUM SERUM 147 mmol/L (136-145); UREA NITROGEN, BLOOD 51 mg/dL (7-18)
[2016-12-07 06:55] LABS: MAGNESIUM 2.7 mg/dL (1.8-2.4); PHOSPHORUS 2.9 mg/dL (2.5-4.9)
[2016-12-07] MEDS: BUDESONIDE 0.5 MG/2 ML NEBU INH SCH ×2 (07:09→20:08)
[2016-12-07 07:12] LABS: BAND % (MANUAL) 2 % (0-8); LYMPHOCYTES % (MANUAL) 5 % (20-46); MONOCYTES % (MANUAL) 2 % (5-12); NEUTROPHILS % (MANUAL) 91 (43-65)
[2016-12-07 07:13] LABS: PLATELET ESTIMATE ADEQUATE
--- NOTE | 2016-12-07 07:30 | NUR ---
ENDORSED PATIENT TO DAY RN FOR CONTINUITY OF CARE, PATIENT IS IN STABLE CONDITION.
--- NOTE | 2016-12-07 07:32 | NUR ---
RECEIVED REPORT FROM NIGHT RN. PT RESTING IN BED. AAOX4. NO S/S OF ACUTE DISTRESS. PT DENIES PAIN. IV SITE PATENT AND INTACT. CALL LIGHT WITHIN REACH. SAFETY MEASURES ENSURED. WILL CONTINUE TO MONITOR.
[2016-12-07 07:41] VITALS: BP 159/79
[2016-12-07] MEDS: ECOTRIN 81 MG TABEC PO SCH (08:42)
[2016-12-07] MEDS: RALOXIFENE 60 MG TAB PO SCH (08:42)
[2016-12-07] MEDS: CARVEDILOL 3.125 MG TAB PO SCH ×2 (08:42→20:37)
[2016-12-07] MEDS: CALCIUM CARB/VIT-D 500 MG/200 IU 1 TAB PO SCH (08:42)
[2016-12-07] MEDS: FUROSEMIDE 40 MG/4 ML VIAL IVP SCH (08:43)
[2016-12-07] MEDS: LISINOPRIL 5 MG TAB PO SCH (08:43)
[2016-12-07] MEDS: MULTIVITAMIN/MINERALS 1 TAB PO SCH (08:43)
[2016-12-07] MEDS: methylPREDNISolone SS 40 MG/ML VIAL IVP SCH ×2 (08:43→20:40)
--- NOTE | 2016-12-07 08:53 | NUR ---
AM MEDICATIONS GIVEN WITH EDUCATION. PT VERBALIZED UNDERSTANDING. PT TOLERATED WELL. WILL CONTINUE TO MONITOR.
[2016-12-07 12:00] VITALS: BP 142/72
--- NOTE | 2016-12-07 13:01 | NUR ---
PT RESTING IN BED. NO S/S OF ACUTE DISTRESS. PT DENIES PAIN. AT BEDSIDE. WILL CONTINUE TO MONITOR.
--- NOTE | 2016-12-07 13:21 | NUR ---
SS NOTE: I SPOKE WITH PT AND PT'S , ALONA GLASER REGARDING PT'S DISCHARGE PLAN. PT STATED THAT HER DAUGHTER AND SON-IN-LAW WILL BE HERE TODAY AND THEY WILL PROVIDE PT WITH THE ASSISTANCE THAT SHE NEEDS. SHE ALSO STATED THAT SHE IS IN AGREEMENT WITH HOME HEALTH SERVICES AND DOES NOT HAVE A PREFERENCE TO WHICH AGENCY COMES TO SEE HER.
[2016-12-07 16:00] VITALS: BP 139/80
--- NOTE | 2016-12-07 16:09 | NUR ---
PT RESTING IN BED. NO S/S OF ACUTE DISTRESS. PT DENIES PAIN. DAUGHTER AND SON-IN-LAW AT BEDSIDE. WILL CONTINUE TO MONITOR.
--- NOTE | 2016-12-07 16:16 | NUR ---
SS NOTE: I SPOKE WITH PT, PT'S DTR- BERNIE AND PT'S SON-IN-LAW, JESSICA WITH DR. MCQUEEN BEDSIDE REGARDING SNF PLACEMENT NOW THAT PT REQUIRES IV ABX. PT STATED THAT HER FIRST CHOICE IS [facility] AND HER SECOND CHOICE IS [facility].
--- NOTE | 2016-12-07 19:06 | NUR ---
ENDORSED PLAN OF CARE TO NIGHT RN. PT REMAINS STABLE.
--- NOTE | 2016-12-07 19:07 | NUR ---
RECEIVED REPORT FROM DAY RN FOR CONTINUITY OF CARE. PATIENT IS A&OX4, DISCUSSED PLAN OF CARE WITH PATIENT, VERBALIZED UNDERSTANDING. SHIFT ASSESSMENT DONE, VITAL SIGNS STABLE AT THIS TIME. NO S/S OF RESPIRATORY DISTRESS NOTED ON 3L NC, O2 SAT AT 92-94%. PATIENT DENIES PAIN. IV TO RT WRIST PATENT AND DRESSING CHANGED. CALLAHAN CATHETER IN PLACE DRAINING CLEAR YELLOW URINE TO GRAVITY. SAFETY/ FALL PRECAUTIONS ENFORCED. CALL LIGHT WITHIN REACH. WILL CONTINUE TO MONITOR.
[2016-12-07 20:00] VITALS: BP 134/78
[2016-12-07] MEDS: GABAPENTIN 100 MG CAP PO SCH (20:37)
[2016-12-07] MEDS: SIMVASTATIN 10 MG TAB PO SCH (20:40)
--- NOTE | 2016-12-07 20:40 | NUR ---
DUE MEDICATIONS ADMINISTERED, TOLERATED WELL AND VERBALIZED UNDERSTANDING OF USE. SAFETY MEASURES ENFORCED AND POSITIONED PATIENT FOR COMFORT. WILL CONTINUE TO MONITOR.
--- NOTE | 2016-12-07 23:19 | NUR ---
PT REFUSED HHN TX. PT SAID SHE WANTS TO SLEEP THROUGH THE NIGHT. WILL CONTINUE TO MONITOR.
[2016-12-08] VITALS: BP 128/70
--- NOTE | 2016-12-08 | NUR ---
VITAL SIGNS STABLE AT THIS TIME, PATIENT RESTING WITH NO S/S OF DISTRESS OR DISCOMFORT. CALL LIGHT WITHIN REACH.
--- NOTE | 2016-12-08 02:08 | NUR ---
PATIENT SLEEPING AT THIS TIME, NO S/S OF DISTRESS OR DISCOMFORT NOTED. WILL CONTINUE TO MONITOR.
[2016-12-08] MEDS: MEROPENEM 500 MG in NACL 0.9% 50 ML IV SCH ×2 (02:47→13:42)
[2016-12-08] MEDS: ALBUTEROL SULFATE/IPRATROPIU 3 ML SOL IH SCH ×4 (03:00→15:00)
--- NOTE | 2016-12-08 03:15 | NUR ---
PT REFUSED HHN TX. WILL CONTINUE TO MONITOR.
[2016-12-08 04:00] VITALS: BP 145/78
--- NOTE | 2016-12-08 04:30 | NUR ---
VITAL SIGNS STABLE AT THIS TIME. PATIENT RESTING IN BED, NO DISTRESS OR DISCOMFORT NOTED. WILL CONTINUE TO MONITOR.
[2016-12-08] MEDS: THYROID 60 MG TAB PO SCH (05:58)
--- NOTE | 2016-12-08 06:00 | NUR ---
PATIENT RESTING IN BED EASILY AWAKENS. INTERMITTENT COUGH NOTED DUE TO PT REFUSAL OF BREATHING TREATMENTS. WILL CONTINUE TO MONITOR.
[2016-12-08 06:55] LABS: HEMATOCRIT 42.2 % (36-48); HEMOGLOBIN 13.7 g/dL (12.0-16.0); MEAN CORPUSCULAR HEMOGLOBIN 32 pg (27-31); MEAN CORPUSCULAR HGB CONC 33 g/dL (33-37); MEAN CORPUSCULAR VOLUME 99 fL (80-94); PLATELET COUNT (AUTO) 229 K/uL (140-450); RED BLOOD CELL COUNT(AUTO) 4.24 MIL/uL (4.20-5.40); RED CELL DISTRIBUTION WIDTH 12.7 % (11.6-13.7); WHITE BLOOD COUNT (AUTO) 20.5 K/uL (4.8-10.8)
[2016-12-08 07:00] LABS: MAGNESIUM 2.6 mg/dL (1.8-2.4); PHOSPHORUS 2.5 mg/dL (2.5-4.9)
[2016-12-08 07:09] LABS: ANION GAP 5.6 (8-16); CALCIUM 8.2 mg/dL (8.5-10.1); CARBON DIOXIDE 39.7 mmol/L (21-32); CHLORIDE 107 mmol/L (98-107); CREATININE 0.8 mg/dL (0.6-1.3); GLUCOSE 157 mg/dL (74-106); POTASSIUM 4.3 mmol/L (3.5-5.1); SODIUM SERUM 148 mmol/L (136-145); UREA NITROGEN, BLOOD 41 mg/dL (7-18)
--- NOTE | 2016-12-08 07:10 | NUR ---
PT IS AAOX4 AND SHOWS NO S/S OF DISTRESS ON 3L O2 VIA NC. PT DENIES PAIN AND SOB. PT SKIN IS INTACT. NOTED CALLAHAN CATHETER BAG WITH CLEAR YELLOW URINE. PT ON TELE MONITORING. IV NOTE ON THE R W SALINE LOCKED. PT BED IS LOWERED WITH CALL LIGHT WITHIN REACH. PT WAS EDUCATED ON POC FOR TODAY. PT VERBALIZED UNDERSTANDING OF POC. WILL CONTINUE TO MONITOR.
--- NOTE | 2016-12-08 07:10 | NUR ---
ENDORSED PATIENT TO DAY RN FOR CONTINUITY OF CARE, PATIENT IS IN STABLE CONDITION.
[2016-12-08] MEDS: BUDESONIDE 0.5 MG/2 ML NEBU INH SCH (07:20)
--- NOTE | 2016-12-08 07:20 | NUR ---
AWAKE AND ALERT RESPONSIVE TO RING MAKER VERBAL COMMANDS SATURATION 93% ON HUMIDIFIED SUPPLEMENTAL OXYGEN AT 3 LPM VIA NC POST HHN THERAPY TITRATED FIO2 TO 2 LPM STANDING TITRATION ORDER 88%-92% JOHNNY/RN AWARE
[2016-12-08 07:46] VITALS: BP 148/86
[2016-12-08 08:07] LABS: LYMPHOCYTES % (MANUAL) 3 % (20-46); MONOCYTES % (MANUAL) 2 % (5-12); NEUTROPHILS % (MANUAL) 95 (43-65)
[2016-12-08] MEDS: RALOXIFENE 60 MG TAB PO SCH (08:44)
[2016-12-08] MEDS: CARVEDILOL 3.125 MG TAB PO SCH (08:44)
[2016-12-08] MEDS: CALCIUM CARB/VIT-D 500 MG/200 IU 1 TAB PO SCH (08:45)
[2016-12-08] MEDS: ECOTRIN 81 MG TABEC PO SCH (08:45)
[2016-12-08] MEDS: MULTIVITAMIN/MINERALS 1 TAB PO SCH (08:45)
[2016-12-08] MEDS: FUROSEMIDE 40 MG/4 ML VIAL IVP SCH (08:46)
[2016-12-08] MEDS: methylPREDNISolone SS 40 MG/ML VIAL IVP SCH (08:47)
--- NOTE | 2016-12-08 08:50 | NUR ---
ADMINISTERED SCHEDULED MEDICATIONS. PT TOLERATED ACTIVITY WELL. PT DENIES PAIN AND SOB. PT IS ON O2 3L NC. PT BED IS LOWERED WITH CALL LIGHT WITHIN REACH. PT IS NOW EATING BREAKFAST. ALL NEEDS ARE MET WILL CONTINUE TO MONITOR.
--- NOTE | 2016-12-08 08:55 | NUR ---
PHYSICAL THERAPY TRIED TO GET PT UP OOB HOWEVER PT WANTED TO WAIT UNTIL AFTER BREAKFAST.
[2016-12-08] MEDS ORDERED: LISINOPRIL 5 MG TAB PO SCH (09:00)
--- NOTE | 2016-12-08 09:45 | NUR ---
SS NOTE: PER MERLY FROM [facility], THEY ARE ABLE TO ACCEPT PT. PER MATTIE FROM [facility] [place], THEY ARE ABLE TO ACCEPT PT. I SPOKE WITH PT BEDSIDE REGARDING THE ABOVE INFORMATION. SHE STATED THAT SHE HAS CHANGED HER MIND AND WANTS TO GO TO [facility] [facility] TODAY. Addendum: 12/08/16 at 1010 by Ignacia Franco SS PT ALSO STATED THAT SHE IS IN AGREEMENT WITH PAYING FOR WHEELCHAIR TRANSPORTATION.
--- NOTE | 2016-12-08 10:09 | NUR ---
SS NOTE: [place] [facility] [phone] PT CAN GO TO ROOM 32B UNDER DR. Magalys MOREIRA ANYTIME AFTER 1500 TODAY.
--- NOTE | 2016-12-08 10:42 | NUR ---
PT SHOWS NO S/S OF DISTRESS ON 3L NC. PT IS IN ROOM WITH BED LOWERED WITH CALL LIGHT WITHIN REACH. WILL CONTINUE TO MONITOR.
--- NOTE | 2016-12-08 10:56 | NUR ---
CM NOTE PATIENT TO BE PICKED UP VIA WHEELCHAIR BY [facility] [place] [facility] [place] 1630. AWARE THAT PATIENT WILL BE NEEDING 02 DURING TRANSPORT. DAVID CONLEY MADE AWARE. SPOKE W/ PATIENT AT BEDSIDE. MADE AWARE AND AGREEMENT OF [employer]ER TIME AND COST OF TRANSPORT.
--- NOTE | 2016-12-08 10:56 | NUR ---
PT BEING SEEN BY DR DEL CID
[2016-12-08] MEDS ORDERED: ASPI81TA28 PO (11:53)
[2016-12-08] MEDS ORDERED: MERO500P2 IV (11:53)
[2016-12-08] MEDS ORDERED: IPRA3AMP IH (11:53)
[2016-12-08] MEDS ORDERED: LISI5TAB18 PO (11:54)
[2016-12-08 12:00] VITALS: BP 144/76
--- NOTE | 2016-12-08 12:38 | NUR ---
PT HAS VISITORS AT BEDSIDE. PT SHOWS NO S/S OF DISTRESS ON 1.5 LPM O2 ON NC. WILL CONTINUE TO MONITOR.
--- NOTE | 2016-12-08 12:52 | NUR ---
SPOKE WITH JILLIAN FROM [address] [id number] AND GAVE REPORT. ALL QUESTIONS WERE ANSWERED. PT TO BE TRANSFERRED TO ROOM 32B AT 1630.
--- NOTE | 2016-12-08 13:10 | NUR ---
PT WAS GIVEN DISCHARGE INSTRUCTIONS AND PRESCRIPTIONS. ALL PAPERWORK WAS SIGNED BY PT. ALL QUESTIONS WERE ANSWERED. ALL BELONGINGS AND PRESCRIPTIONS IN PT POSSESSION. IV WILL NOT BE DISCONTINUE DUE TO PT RECEIVING IV ABX AT [facility] [place]. PT SHOWS NO S/S OF DISTRESS ON 1.5 LPM O2 VIA NC. PT HAS FAMILY AT BEDSIDE. THE BED IS LOWERED WITH CALL LIGHT WITHIN REACH. WILL CONTINUE TO MONITOR.
--- NOTE | 2016-12-08 13:42 | NUR ---
ADMINISTERED SCHEDULED MEDICATIONS. PT SHOWS NO S/S OF DISTRESS. PT DENIES PAIN.
--- NOTE | 2016-12-08 14:20 | NUR ---
PT HAS FAMILY AT BEDSIDE AND SHOWS NO S/S OF DISTRESS. WILL CONTINUE TO MONITOR.
--- NOTE | 2016-12-08 14:24 | NUR ---
PHYSICAL THERAPY CO-SIGN The Physical Therapy Progress Notes documented by Foreign Exchange Dealer have been reviewed. Reviewed/Co-Signed by: Troy Calderon PT Documentation Done by: LIZANDRO CHAMORRO PTA PT MAKING GOOD GAINS TOWARDS REHAB GOALS, BREATHING TECHNIQUES GIVE DURING DYNAMIC ACTIVITIES AND ABLE TO FOLLOW. Addendum: 12/08/16 at 1425 by Troy Calderon PT Amended: Links added.
--- NOTE | 2016-12-08 15:30 | NUR ---
PT CALLAHAN CATHETER WAS DISCONTINUED. PT HAD 1150CC OF LAILA URINE. PT TOLERATED ACTIVITY WELL. PT WAS THEN AMB TO THE RESTROOM .
--- NOTE | 2016-12-08 15:36 | NUR ---
ROGERIO AMBULATING TO BATHROOM WITH JOHNNY/RN NO DISTRESS NOTED COIL REPAIR TECHNICIAN TO ATTEMPT HHN THERAPY AT A LATER TIME PATIENT DISCHARGE PLANNED FOR 1630 Addendum: 12/08/16 at 1556 by Jamey Sequeira RT PATIENT
--- NOTE | 2016-12-08 15:54 | NUR ---
PATIENT REMAINS IN BATHROOM AT THIS TIME PORTAL DEVELOPER TO ATTEMPT HHN THERAPY AT A LATER TIME
--- NOTE | 2016-12-08 16:22 | NUR ---
HANNY CHRIS ARRIVED ON UNIT. PT REPORT WAS GIVEN. ALL QUESTIONS ANSWERED. PT IS STILL IN BR. PT FINISHED USING THE RESTROOM AND PT HAD A BM. PT WAS THEN ASSISTED TO A WHEELCHAIR. BY HANNY CHRIS AND RN. PT TOLERATED ACTIVITY WELL. TELE MONITOR WAS REMOVED. PT ALREADY SIGNED DISCHARGE INSTRUCTIONS AND ALL QUESTIONS WERE ANSWERED. PT LEFT UNIT IN STABLE CONDITION.
--- NOTE | 2016-12-08 16:42 | NUR ---
PATIENT DISCHARGED FROM FAC[facility]
== END 2016-12-08 16:22 | DRG 871 ==
LOC: MED 15:15 → MTU 17:11 → MIC 19:15 → MTU 12-05 18:26
PROVIDERS: ADMIT Family Medicine; ATTEND Family Medicine
DX: A41.9 Sepsis, unspecified organism (principal); J69.0 Pneumonitis due to inhalation of food and vomit; I21.4 Non-ST elevation (NSTEMI) myocardial infarction; N17.0 Acute kidney failure with tubular necrosis; I50.43 Acute on chronic combined systolic (congestive) and diastolic (congestive) heart failure; E43 Unspecified severe protein-calorie malnutrition; J96.21 Acute and chronic respiratory failure with hypoxia; J44.9 Chronic obstructive pulmonary disease, unspecified; I11.0 Hypertensive heart disease with heart failure; D86.9 Sarcoidosis, unspecified; E87.6 Hypokalemia; I25.10 Atherosclerotic heart disease of native coronary artery without angina pectoris; E11.9 Type 2 diabetes mellitus without complications; I07.1 Rheumatic tricuspid insufficiency; I27.2 Other secondary pulmonary hypertension; Z79.52 Long term (current) use of systemic steroids; Z79.899 Other long term (current) drug therapy; Z71.3 Dietary counseling and surveillance; Z88.0 Allergy status to penicillin; Z68.29 Body mass index [BMI] 29.0-29.9, adult
CPT/HCPCS: 36415; 36600; 71010; 71250; 74000; 80048; 80053; 81001; 82040; 82150; 82553; 82803; 83036; 83605; 83690; 83735; 83880; 84100; 84439; 84443; 84484; 85025; 85379; 85610; 85730; 87040; 87081; 87086; 93005; 94640; 96365; 96366; 96375; 97110; 97116; 97140; 97530; 99285; J1644; J1940; J1956; J2185; J2543; J2920; J2930; J3475; J3490; J7030; J7060; J7613; J7620; J7626; J7644; Q0092

== ENCOUNTER 2016-12-24 10:53 | Observation (INO) | payer OTHER, MEDICARE ==
[~2016-12-24] VITALS: Ht 147.3 cm; Wt 68.0 kg
[~2016-12-24 10:53] MED LIST: AMLO5TAB PO; ASPI81TA28 PO; FURO-570 PO; GABA100C PO; IPRA3AMP IH; LISI-424 PO; LISI5TAB18 PO; MERO500P2 IV; OSC500 PO; PRED10TA5 PO; RALO60TA PO; THYR60TA7 PO; TRA200 PO; VITA-204 PO; [UNRECOGNIZED DRUG - CODE] PO
--- NOTE | 2016-12-24 10:53 | NUR ---
Patient BIBA [facility] from SN[facility], transferred to bed 3. RN evaluating patient at bedside.
--- NOTE | 2016-12-24 10:54 | NUR ---
Dr. Donahue evaluating patient at bedside.
--- NOTE | 2016-12-24 10:56 | NUR ---
Respiratory therapist evaluating patient at bedside.
[2016-12-24 11:00] VITALS: BP 118/54
--- NOTE | 2016-12-24 11:00 | NUR ---
86/F BIBA from [facility] for increased sob X 1DAY. DENIES N/V/D; SKIN IS BRUISE RFA, & REDNESS AT COCCYX; HX OF COPD USE OXYGEN NC 2L/M AT HOME, HTN, SARCOIDOSIS , PHOEBE LOBECTOMY. AAOX4 WITH EVEN AND UNSTEADY GAIT ,AMB BY W/C; LUNGS;RALES BL; PT DENIES ANY FEVER, CP OR COUGH AT THIS TIME; PATIENT STATES PAIN OF 0/10 AT THIS TIME; PATIENT POSITIONED FOR COMFORT; HOB ELEVATED; BEDRAILS UP X2; BED DOWN. ER MD MADE AWARE OF PT STATUS.
[2016-12-24] MEDS ORDERED: NACL 0.9% 1,000 ML IV SCH (11:07)
[2016-12-24] MEDS ORDERED: methylPREDNISolone SS 125 MG in WATER STERILE 2 ML IM ONE (11:10)
[2016-12-24] MEDS ORDERED: MAG SULF 2000 MG/WATER PREMIX 50 ML IV ONE (11:10)
[2016-12-24] MEDS ORDERED: IPRATROPIUM 0.02% 0.5 MG/2.5 ML NEBU INH ONE (11:10)
[2016-12-24] MEDS ORDERED: ALBUTEROL 0.083% 2.5 MG/3 ML NEBU INH ONE (11:10)
[2016-12-24] MEDS ORDERED: ASPIRIN 81 MG TAB.CHEW PO ONE (11:10)
--- NOTE | 2016-12-24 11:11 | NUR ---
GAVE SOLU MEDROL 125MG IN WATER 2 ML VIA 22G LFA IV PER DR WALTER VERBAL ORDER.
--- NOTE | 2016-12-24 11:14 | NUR ---
Breathing treatment administered by respiratory therapist at bedside.
[2016-12-24 11:30] LABS: HEMATOCRIT 39.6 % (36-48); MEAN CORPUSCULAR HEMOGLOBIN 32 pg (27-31); MEAN CORPUSCULAR HGB CONC 33 g/dL (33-37); MEAN CORPUSCULAR VOLUME 98 fL (80-94); PLATELET COUNT (AUTO) 238 K/uL (140-450); RED BLOOD CELL COUNT(AUTO) 4.03 MIL/uL (4.20-5.40); RED CELL DISTRIBUTION WIDTH 12.6 % (11.6-13.7); WHITE BLOOD COUNT (AUTO) 19.5 K/uL (4.8-10.8)
[2016-12-24 11:41] LABS: INR 1.2 (0.8-1.2); PARTIAL THROMBOPLASTIN TIME 25.2 secs (22-35.6); PROTHROMBIN TIME 12.2 secs (10.8-13.4)
[2016-12-24 11:44] LABS: BAND % (MANUAL) 0 % (0-8); BASOPHILS % (MANUAL) 0 % (0-2); EOSINOPHILS % (MANUAL) 0 % (0-4); LYMPHOCYTES % (MANUAL) 3 % (20-46); MONOCYTES % (MANUAL) 7 % (5-12); NEUTROPHILS % (MANUAL) 90 (43-65); PLATELET ESTIMATE ADEQUATE
[2016-12-24 12:00] LABS: CREATINE KINASE MB 3.2 ng/mL (0-3.6)
[2016-12-24 12:19] LABS: ALANINE AMINOTRANSFERASE 18 U/L (14-59); ALBUMIN 2.1 g/dL (3.4-5.0); ALKALINE PHOSPHATASE 80 U/L (46-116); AMYLASE 32 U/L (25-115); ANION GAP 11.1 (8-16); ASPARTATE AMINOTRANSFERASE 25 U/L (15-37); CALCIUM 8.5 mg/dL (8.5-10.1); CARBON DIOXIDE 32.8 mmol/L (21-32); CHLORIDE 103 mmol/L (98-107); CREATININE 0.8 mg/dL (0.6-1.3); GLUCOSE 125 mg/dL (74-106); LIPASE 79 U/L (73-393); POTASSIUM 3.9 mmol/L (3.5-5.1); SODIUM SERUM 143 mmol/L (136-145); TOTAL BILIRUBIN 1.8 mg/dL (0.0-1.0); TOTAL PROTEIN, SERUM 6.3 g/dL (6.4-8.2); UREA NITROGEN, BLOOD 23 mg/dL (7-18)
[2016-12-24] MEDS ORDERED: oxyCODONE/APAP 5/325 MG 1 TAB TAB PO PRN ×2 (13:00)
[2016-12-24] MEDS ORDERED: HYDROmorphone 1 MG/ML AMP IVP PRN ×2 (13:00)
[2016-12-24] MEDS ORDERED: ACETAMINOPHEN 325 MG TAB PO PRN (13:00)
[2016-12-24] MEDS ORDERED: HYDROcodone/APAP 7.5/325 MG 1 TAB PO PRN (13:00)
[2016-12-24] MEDS ORDERED: ONDANSETRON 4 MG/2 ML VIAL IM/IVP PRN (13:00)
[2016-12-24] MEDS ORDERED: DOCUSATE SODIUM 100 MG GELCAP PO PRN (13:00)
[2016-12-24] MEDS ORDERED: MORPHINE SULFATE 2 MG/ML SYR IVP PRN (13:00)
--- NOTE | 2016-12-24 13:37 | NUR ---
STARAIT CATH URINE 1200 ML,; ORANGE
--- NOTE | 2016-12-24 13:37 | NUR ---
Alton soliman in [facility] - 12/24/16 at 1343 by MED1 STARAIT CATH URINE 600 ML
--- NOTE | 2016-12-24 13:44 | NUR ---
Patient appears to be resting comfortably in bed. Vital Signs within normal limits. SOB ;ON OXIGEN MASK 8 L/M ..WILL CONTINUE TO MONITOR
[2016-12-24 13:49] LABS: CHOL/HDL RATIO 5.1 (1-4.5)
[2016-12-24 13:57] LABS: LACTIC ACID 1.4 mmol/L (0.4-2.0)
--- NOTE | 2016-12-24 13:57 | NUR ---
CALLED REPORT TO AICHA VALADEZ. AICHA VALADEZ WILL CALL BACK
[2016-12-24 14:07] LABS: FREE T4 (FREE THYROXINE) 1.16 ng/dL (0.76-1.46); MAGNESIUM 2.2 mg/dL (1.8-2.4); PHOSPHORUS 3.6 mg/dL (2.5-4.9); THYROID STIMULATING HORMONE 1.13 uIU/mL (0.34-3.74)
--- NOTE | 2016-12-24 14:23 | NUR ---
Patient will be admitted to care of [facility] . Admited to TELE. Will go to [id number]. Belongings list completed. Report to AICHA LAKHANI.
[2016-12-24 14:30] LABS: APPEARANCE,URINE CLEAR (CLEAR); BILIRUBIN,URINE NEGATIVE (NEGATIVE); BLOOD, URINE NEGATIVE (NEGATIVE); COLOR,URINE YELLOW (YELLOW); LEUKOCYTE ESTERASE ,URINE NEGATIVE (NEGATIVE); NITRITE, URINE NEGATIVE (NEGATIVE); PH,URINE 6.5 (5.0-9.0); PROTEIN,URINE NEGATIVE (NEGATIVE); UGLUCOSE NEGATIVE (NEGATIVE); UROBILINOGEN,URINE 0.2 EU/dL (0.2 - 1)
[2016-12-24] MEDS: ECOTRIN 81 MG TABEC PO SCH (14:55)
[2016-12-24] MEDS ORDERED: FUROSEMIDE 20 MG/2 ML VIAL IVP SCH (14:55)
[2016-12-24] MEDS ORDERED: predniSONE 10 MG TAB PO SCH (14:55)
[2016-12-24] MEDS: CALCIUM CARBONATE 500 MG TAB PO SCH ×2 (14:55→17:00)
[2016-12-24] MEDS ORDERED: ALBUTEROL SULFATE/IPRATROPIU 3 ML SOL IH PRN ×2 (14:55→17:10)
[2016-12-24] MEDS ORDERED: amLODIPine 5 MG TAB PO SCH ×2 (14:55→18:00)
--- NOTE | 2016-12-24 15:00 | NUR ---
RECEIVED PT FROM ER PER JAMI PER SETH HOLCOMB. PT AWAKE, ALERT ORIENTEDX4. PT ON OXYGEN MASK AT 8LPM. DENIES ANY PAIN OR DISCOMFORT AT THIS TIME. POSITIVE BOWELS SOUNDS NOTED ON FOUR QUADRANTS. SKIN INTACT. PT ON BEDREST FOR NOW. FAMILY AT BEDSIDE. TRANSFERRED TO BED SAFELY AND COMFORTABLY. HOOKED TO OS AT 2LPM VIA NC. PT HOOKED TO TELEMONITOR. PLACED ON SCD. PT ON FALL PRECAUTION. SAFETY PRECAUTION IN PLACE. CALL LIGHT WITHIN REACH.
--- NOTE | 2016-12-24 15:56 | NUR ---
PT PLACED ON 5L OXYMIZER SPO2 90%. PT NOT SOB AND NOT IN RESPIRATORY DISTRESS AT THIS TIME. NURSE GEOFFREY BRINK.
[2016-12-24 16:00] VITALS: BP 118/65
--- NOTE | 2016-12-24 16:00 | NUR ---
PATIENT HOOKED TO IVF AT 30 ML/HR NS .9% ON RIGHT HAND G20. PATENT, INTACT, INFUSING WELL.
--- NOTE | 2016-12-24 16:02 | NUR ---
CLARIFIED WITH SETH HOLCOMB, ER NURSE THE MEDS SHE GAVE FROM THE ER. ACCORDING TO HER SHE JUST GAVE ASPIRIN 81 MG, AND MG SULFATE DRIP.
--- NOTE | 2016-12-24 17:00 | NUR ---
CALLED PHARMACY FOR MEDICATION DELTASONE, EVISTA, AND NORVASC NOT SHOWING IN [facility] FOR TODAY SPOKE WITH SHAHEEN PHARMACIST TO JUST GET AN ORDER FROM MD FOR X1 DOSE. DR. ADDISON MADE AWARE AND SAID SHE WILL PUT IN 1X ORDER FOR NORVASC BUT FOR EVISTA AND DELTASONE, ITS OK TO START TOMORROW. PT REFUSED TO TAKE ORDERED OSCAL, SHE SAID SHE TAKES IT IN AM.
[2016-12-24] MEDS ORDERED: LEVOFLOXACIN 750 MG/D5W PREMIX 150 ML IV SCH (17:10)
[2016-12-24] MEDS: NACL 0.9% 1,000 ML IV SCH (17:47)
--- NOTE | 2016-12-24 17:47 | NUR ---
IV FLUID COMPLETED.
--- NOTE | 2016-12-24 18:00 | NUR ---
PT REFUSED NORVASC 5MG DUE TO WHEN CHECKED BP RESULT WAS 118/65, AND ACCORDING TO PT NOT HIGH SO NO NEED FOR MEDICATION.
[2016-12-24 18:01] LABS: BLOOD GAS BASE EXCESS 4.2 mmol/L (-2.0-2.0); BLOOD GAS O2 SAT% 94.3 % (92.0-98.5); BLOOD GAS PCO2 38.9 mmHg (20-50); BLOOD GAS PH 7.475 (7.35-7.45); BLOOD GAS PO2 75.3 mmHg
[2016-12-24] MEDS: RALOXIFENE 60 MG TAB PO SCH (18:08)
[2016-12-24] MEDS: ALBUTEROL SULFATE/IPRATROPIU 3 ML SOL IH SCH (19:00)
--- NOTE | 2016-12-24 19:30 | NUR ---
PT KEPT CLEAN, DRY AND COMFORTABLE, NEEDS ATTENDED. PT ON OXIMIZER. DENIES ANY DISCOMFORT AT THIS TIME. PT ENDORSED TO NEXT SHIFT ON STABLE CONDITION FOR CONTINUITY OF CARE.
--- NOTE | 2016-12-24 19:31 | NUR ---
RECEIVED REPORT FROM AM NURSE. PT RESTING IN BED, AOX4, ABLE TO VERBALIZE NEEDS. PT DENIES CHEST PAIN, SOB OR S/S OF ACUTE DISTRESS. PT 5L O2 OXIMER, CONTINUOUS SPO2 AT 92%, HR 121. CARD PROCESSING CLERK IN PLACE. SCDs IN PLACE. IV ACCESS ASYMPTOMATIC, PATENT AND INTACT. IVF INFUSING WELL. DISCUSSED AND REVIEWED PLAN OF CARE WITH PT. PT VERBALIZED UNDERSTANDING. SAFETY MEASURES ENSURED. CALL LIGHT WITHIN REACH. WILL CONTINUE TO MONITOR.
[2016-12-24 20:00] VITALS: BP 113/58
[2016-12-24] MEDS: LABETALOL 200 MG TAB PO SCH (20:37)
[2016-12-24] MEDS: methylPREDNISolone SS 125 MG/2 ML VIAL IVP SCH (20:37)
--- NOTE | 2016-12-24 20:37 | NUR ---
ADMINISTERED DUE MEDICATIONS WITH EDUCATION. PT VERBALIZED UNDERSTANDING, PT PREFERRED TAKING PILLS ONE BY ONE, TOLERATED MEDS WELL. PT TURNED AND REPOSITIONED, OFFLOADED PRESSURE AREAS WITH BULK STATION AGENT. PT TOLERATED WELL. IVF INFUSING WELL. O2 OXYMIZER ENSURED. SAFETY MEASURES ENSURED. CALL LIGHT WITHIN REACH.
[2016-12-24] MEDS ORDERED: GABAPENTIN 100 MG CAP PO SCH (21:00)
--- NOTE | 2016-12-24 22:22 | NUR ---
NOTIFIED BY SHERPA assistant THAT SHE WAS UNABLE TO DO US ABD DUE TO PT EATING DINNER, ALSO INFORMED THAT SHERPA assistant WILL HAVE IT DONE TOMORROW AT 0700 AND THE PT NEEDS TO BE NPO. PT INSTRUCTED TO REMAIN NPO AT MIDNIGHT UNTIL US ABD TOMORROW AT 0700. PT VERBALIZED UNDERSTANDING.
[2016-12-25] VITALS: BP 101/58
--- NOTE | 2016-12-25 00:15 | NUR ---
PT SLEEPING COMFORTABLY. SPO2 97% AT 5L OXIMIZER, RR 24, CONDITION STABLE. ALL NEEDS MET. SAFETY MEASURES ENSURED. CALL LIGHT WITHIN REACH. WILL CONTINUE TO MONITOR.
--- NOTE | 2016-12-25 02:00 | NUR ---
PT TURNED AND REPOSITIONED, OFFLOADED PRESSURE AREAS. PT TOLERATED WELL. CONDITION STABLE. ALL NEEDS MET. SAFETY MEASURES ENSURED. CALL LIGHT WITHIN REACH. WILL CONTINUE TO MONITOR.
[2016-12-25 03:21] LABS: LYMPHOCYTES # (AUTO) 0.7 K/uL (2.5-16.5); MONOCYTES # (AUTO) 0.2 K/uL (0.8-1.0)
[2016-12-25 03:25] LABS: BASOPHILS % (AUTO) 0.3 % (0.0-2.0); EOSINOPHILS # (AUTO) 0.4 K/uL (0-0.4); EOSINOPHILS % (AUTO) 2.5 % (0.0-4.0); HEMATOCRIT 35.5 % (36-48); HEMOGLOBIN 11.5 g/dL (12.0-16.0); LYMPHOCYTES % (AUTO) 4.5 % (20.5-51.1); MEAN CORPUSCULAR HEMOGLOBIN 32 pg (27-31); MEAN CORPUSCULAR HGB CONC 32 g/dL (33-37); MEAN CORPUSCULAR VOLUME 98 fL (80-94); MONOCYTES % (AUTO) 1.3 % (1.7-9.3); NEUTROPHILS # (AUTO) 13.7 K/uL (1.8-7.7); NEUTROPHILS % (AUTO) 91.4 % (42.2-75.2); PLATELET COUNT (AUTO) 213 K/uL (140-450); RED BLOOD CELL COUNT(AUTO) 3.63 MIL/uL (4.20-5.40); RED CELL DISTRIBUTION WIDTH 12.4 % (11.6-13.7)
[2016-12-25 03:34] LABS: ANION GAP 9.9 (8-16); CALCIUM 7.7 mg/dL (8.5-10.1); CARBON DIOXIDE 33.2 mmol/L (21-32); CHLORIDE 105 mmol/L (98-107); CREATININE 0.8 mg/dL (0.6-1.3); GLUCOSE 135 mg/dL (74-106); MAGNESIUM 2.5 mg/dL (1.8-2.4); PHOSPHORUS 4.2 mg/dL (2.5-4.9); POTASSIUM 4.1 mmol/L (3.5-5.1); SODIUM SERUM 144 mmol/L (136-145); UREA NITROGEN, BLOOD 28 mg/dL (7-18)
[2016-12-25 04:00] VITALS: BP 115/63
[2016-12-25] MEDS: methylPREDNISolone SS 125 MG/2 ML VIAL IVP SCH (04:08)
--- NOTE | 2016-12-25 04:14 | NUR ---
PT SLEEPING BUT AROUSABLE. ADMINISTERED DUE SOLUMEDROL IVP WITH EDUCATION. PT VERBALIZED UNDERSTANDING, TOLERATED MED WELL. SPO2 95%, RR 22. NO S/S OF ACUTE DISTRESS. ALL NEEDS MET. SAFETY MEASURES ENSURED. CALL LIGHT WITHIN REACH. WILL CONTINUE TO MONITOR.
--- NOTE | 2016-12-25 06:46 | NUR ---
PATIENT HAS BEEN SCREENED AND CATEGORIZED MODERATE NUTRITION RISK. PATIENT WILL BE SEEN WITHIN 3-5 DAYS OF ADMISSION. 12/27/16-12/29/16 EILEEN MCDONALD MS, RDN Addendum: 12/25/16 at [address] FNS referral received on 12/24/16. Referral reason does not meet high risk criteria per hospital policy. Patient will be seen and assessed according to the nutrition care policy. Eileen Mcdonald MS, RDN
--- NOTE | 2016-12-25 07:29 | NUR ---
ENDORSED PLAN OF CARE TO AM NURSE. CONDITION STABLE.
--- NOTE | 2016-12-25 07:30 | NUR ---
RECEIVED PT IN BED. AWAKE. ALERT ORIENTEDX4. NO SOB NOTED. ON OXYMIZER AT 5LPM. DENIES ANY PAIN OR DISCOMFORT AT THIS TIME. POSITIVE BOWEL SOUNDS NOTED ON FOUR QUADRANTS. PT BEDBOUND. SAFETY PRECAUTION IN PLACE. CALL LIGHT WITHIN REACH.
[2016-12-25 08:00] VITALS: BP 108/63
--- NOTE | 2016-12-25 08:07 | NUR ---
AWAKE AND ALERT HOB AT 30 DEGREES PATIENT C/O OF 1) NASAL DRYNESS WITH SUPPLEMENTAL OXYGEN USE 2) PATIENT STATES THAT THE OXYMIZER "TO HEAVY" POST HHN THERAPY ADDED HUMIDIFIER CHANGED OXYGEN DEVICE TO A NASAL CANNULA
[2016-12-25] MEDS: ALBUTEROL SULFATE/IPRATROPIU 3 ML SOL IH SCH ×2 (08:08→13:35)
[2016-12-25] MEDS: THYROID 60 MG TAB PO SCH ×2 (08:50→09:00)
[2016-12-25] MEDS: RALOXIFENE 60 MG TAB PO SCH (08:51)
[2016-12-25] MEDS: ECOTRIN 81 MG TABEC PO SCH (08:51)
[2016-12-25] MEDS ORDERED: VITAMIN D 400 IU TAB PO SCH (09:00)
[2016-12-25] MEDS ORDERED: VITAMIN E 400 IU CAPLF PO SCH (09:00)
[2016-12-25] MEDS ORDERED: LACTOBACILLUS RHAMNOSUS GG 1 EACH CAP PO SCH (09:00)
[2016-12-25] MEDS ORDERED: VITAMIN E PO SCH (09:00)
[2016-12-25] MEDS ORDERED: LISINOPRIL 5 MG TAB PO SCH (09:00)
[2016-12-25] MEDS: LABETALOL 200 MG TAB PO SCH (09:00)
[2016-12-25] MEDS: CALCIUM CARBONATE 500 MG TAB PO SCH ×3 (09:00→17:00)
[2016-12-25] MEDS ORDERED: THYROID 60 MG TAB PO SCH (09:00)
[2016-12-25] MEDS ORDERED: POTASSIUM BICARBONATE PO SCH (09:00)
[2016-12-25] MEDS ORDERED: FUROSEMIDE 40 MG TAB PO SCH (09:00)
[2016-12-25] MEDS ORDERED: CIT AC PO SCH (09:00)
--- NOTE | 2016-12-25 09:00 | NUR ---
DR. ADDISON MADE AWARE THAT MG LEVEL HIGH AT 2.5. AND BLOOD PRESSURE MEDS WERE HELD DUE TO BLOOD PRESSURE 108/63 HR 92, WITH THE LASIX. WILL RECHECK BP AND SEE IT LASIX CAN BE GIVEN. DR. BRINK
--- NOTE | 2016-12-25 11:04 | NUR ---
PER LINE RIDER. PT HAS A SKIN TEAR OH HER RIGHT SACRAL AREA. CLEANSED KEPT CLEAN, NO ACTIVE BLEEDING NOTED. ASSESSMENT DONE. PHOTO TAKEN. WILL LET MD KNOW FOR TREATMENT AND ORDERS.
--- NOTE | 2016-12-25 11:30 | NUR ---
PT REFUSES TO TAKE LASIX. EXPLAINED BENEFITS. PT STILL REFUSES VERBALIZES SHE DOES NOT NEED IT. DR. ADDISON MADE AWARE AND CAME TO SEE PT. PT VERBALIZED UNDERSTANDING. MD ALSO AWARE THAT PT REFUSES TO TAKE OSCAL PO. AND WOUND WANT TO HAVE A GUMMI ALTERNATIVE BECAUSE THE TAB IS TOO DIFFICULT TO SWALLOW.
[2016-12-25 12:00] VITALS: BP 113/57
[2016-12-25] MEDS ORDERED: methylPREDNISolone SS 80 MG in WATER STERILE 1 ML IV SCH (12:00)
--- NOTE | 2016-12-25 12:20 | NUR ---
AWAKE AND ALERT NO PULMONARY DISTRESS NOTED RESPONSIVE TO COMMUNITY RELATIONS MANAGER VERBAL IN HFW POSITION PATIENT WITH LUNCH TRAY AT THIS TIME COMMUNITY RELATIONS MANAGER TO ATTEMPT HHN THERAPY AT A LATER TIME Addendum: 12/25/16 at 1225 by Jamey Sequeira RT FAMILY IN ROOM
[2016-12-25] MEDS: NACL 0.9% 1,000 ML IV SCH (12:56)
[2016-12-25] MEDS ORDERED: POTA25TE38 PO (15:34)
[2016-12-25] MEDS ORDERED: LISI5TAB18 PO (15:34)
[2016-12-25] MEDS ORDERED: FURO-570 PO (15:34)
[2016-12-25] MEDS ORDERED: RALO60TA PO (15:34)
[2016-12-25] MEDS ORDERED: THYR60TA7 PO (15:34)
[2016-12-25] MEDS ORDERED: GABA100C PO (15:34)
[2016-12-25] MEDS ORDERED: LABE200T9 PO (15:34)
[2016-12-25] MEDS ORDERED: AMLO10TA3 PO (15:34)
[2016-12-25] MEDS ORDERED: PRED10TA5 PO (15:34)
[2016-12-25] MEDS ORDERED: CALC-1139 PO (15:34)
[2016-12-25] MEDS ORDERED: PRED10TA6 PO (15:34)
[2016-12-25] MEDS ORDERED: LEVO750T2 PO (15:45)
[2016-12-25] MEDS ORDERED: LACT1.4C PO (15:45)
[2016-12-25 16:00] VITALS: BP 106/57
--- NOTE | 2016-12-25 16:04 | NUR ---
Social Service Note: Per charge nurse Arlin, patient's nurse informed her patient would like to return to [facility] upon discharge. I faxed patient's medical information to [facility]. Per Michelle from [facility] patient may return to room 32A anytime today, charge nurse Arlin aware.
--- NOTE | 2016-12-25 17:20 | NUR ---
called [facility] [phone] GAVE REPORT TO NURSE YOLANDA AND MADE AWARE OF GENERATION ENGINEER TIME BY [facility] 1800. PT MADE AWARE AND VERBALIZED UNDERSTANDING. IV CANNULA REMOVED AND INTACT. DISCHARGE INSTRUCTIONS AND TEACHINGS GIVEN TO PT. PT VERBALIZED UNDERSTANDING.
[2016-12-25] MEDS ORDERED: LEVOFLOXACIN 750 MG/D5W PREMIX 150 ML IV SCH (18:00)
--- NOTE | 2016-12-25 18:05 | NUR ---
TELEBOX REMOVED. PT SIGNED DISCHARGE PAPERS. FAMILY AT BEDSIDE. [facility] CAME TO JAVASCRIPT ENGINEER PT. PT CONSUMED HE DINNER AT 50%. NO SOB NOTED. DENIES ANY PAIN OR DISCOMFORT AT THIS TIME. PT TRANSFERED TO [facility] [place] ON STABLE CONDITION.
[2016-12-26 10:24] LABS: T4 (THYROXINE) 4.5 ug/dL (4.5-12.0)
[2016-12-26] MEDS ORDERED: LEVOFLOXACIN 750 MG/D5W PREMIX 150 ML IV SCH (18:00)
== END 2016-12-25 18:10 ==
LOC: MED 10:53 → MTU 12:56
PROVIDERS: ADMIT Student in an Organized Health Care Education/Training Program; ATTEND Student in an Organized Health Care Education/Training Program
DX: J44.1 Chronic obstructive pulmonary disease with (acute) exacerbation (principal); I50.9 Heart failure, unspecified; I11.0 Hypertensive heart disease with heart failure; D86.9 Sarcoidosis, unspecified; N17.0 Acute kidney failure with tubular necrosis; E43 Unspecified severe protein-calorie malnutrition; R79.89 Other specified abnormal findings of blood chemistry; D72.829 Elevated white blood cell count, unspecified; E80.6 Other disorders of bilirubin metabolism
CPT/HCPCS: 36415; 36600; 71010; 76705; 80048; 80053; 80061; 81003; 82150; 82550; 82553; 82803; 83036; 83605; 83615; 83690; 83735; 83880; 84100; 84436; 84439; 84443; 84484; 85025; 85610; 85730; 87040; 87081; 93005; 94640; 94760; 96365; 96366; 96367; 96372; 96375; 96376; 99285; C1758; G0378; J1956; J2930; J3475; J7030; J7613; J7620; J7644; Q0092; 96361